=== PATIENT | female | born 1975 | race African-American/Black ===

== ENCOUNTER 2017-04-10 05:46 | Inpatient (IN) | payer OTHER ==
[~2017-04-10] VITALS: Ht 167.6 cm; Wt 57.9 kg
[2017-04-10 10:04] VITALS: BP 99/57; PULSE 80; RESP 18; TEMP 98.3; O2SAT 100
[2017-04-10] MEDS ORDERED: ALUMINUM/MAGNESIUM/SIMETH 30 ML CUP PO PRN (10:15)
[2017-04-10] MEDS ORDERED: MAGNESIUM HYDROXIDE SUSP 30 ML CUP PO PRN (10:15)
[2017-04-10] MEDS ORDERED: ACETAMINOPHEN 325 MG TAB PO PRN (10:15)
[2017-04-10] MEDS ORDERED: REMOVE OLD PATCH T-DERMAL PRN (10:15)
[2017-04-10] MEDS ORDERED: diphenhydrAMINE HCL 50 MG CAP PO PRN (10:15)
[2017-04-10] MEDS ORDERED: NICOTINE 21 MG/24 HR PATCH T-DERMAL PRN (10:15)
[2017-04-10] MEDS ORDERED: hydrOXYzine HCL 50 MG TAB PO PRN (12:15)
--- NOTE | 2017-04-10 12:15 | HHI.HP ---
Provisional Diagnosis Admission Date Apr 10, 2017 at 09:53 [place] I. 1. Schizoaffective disorder, bipolar type, acute exacerbation [place] II. Deferred Certification of Person's Competence To Provide Express and Informed Consent I have personally examined Jose Dooley , a person being served at [facility] on, Apr 10, 2017 12:15. Express and informed consent means consent voluntarily given in writing, by a competent person, after sufficient explanation and disclosure of the subject matter involved to enable the person to make a knowing and willful decision without any element of force, fraud, deceit, duress, or other form of constraint or coercion. This person is 18 years of age or older, is not now known to be incompetent to consent to treatment with a guardian advocate, and does not have a health care surrogate or proxy currently making medical treatment decisions. I have found this person to be one of the following: [X] Competent to provide express and informed consent, as defined above, for voluntary admission to this facility and is competent to provide express and informed consent for treatment. He/she has the consistent capacity to make well reasoned, willful, and knowing decisions concerning his or her medical or mental health treatment. The person fully and consistently understands the purpose of the admission for examination/placement and is fully capable of personally exercising all rights assured under [place] Incompetent to provide express and informed consent to voluntary admission, and this is incompetent to provide express and informed consent to treatment. The person must be transferred to involuntary status and a petition for a guardian advocate filed with the Circuit Court. [] Refusing to provide express and informed consent to voluntary admission but is competent to provide express and informed consent for treatment. The person must be discharged or transferred to involuntary status. Form shall be completed within 24 hours of a person's arrival at the receiving facility and filed in the clinical record of each person: 1. Admitted on a voluntary basis 2. Permitted to provide express and informed consent to his/her own treatment 3. Allowed to transfer from involuntary to voluntary status 4. Prior to permitting a person to consent to his or her own treatment after having been previously found incompetent to consent to treatment. History of Present Illness Capacity: Has Capacity Psych Chief Complaint: Psychosis, SI HPI Ms. Dooley is a 41-year-old female with a reported history of bipolar disorder who presents in transfer from [facility] under a Veloz act. Documentation from outside hospital reviewed. Case discussed with referring physician overnight. Patient presented there initially complaining of bilateral leg pain, workup for this was negative for any acute process per the ED provider. She became nonverbal in the ED and when she began speaking again, it was reportedly word salad. ED provider reported that he obtained head CT, which was unremarkable. Reviewing our electronic medical record, it appears this is patient's first visit to [facility]. Patient seen and examined with nurse. Chart reviewed. Case discussed with nursing staff. On my examination today, the patient reports that she used to be on Invega Sustenna until December 2016 when she stopped this medication because she thought she didn't need it anymore. Since that time she has been experiencing intermittent irritability and vague suicidal ideation. She contracts for safety in the hospital. She describes her mood presently as "settled" but does admit to feeling somewhat depressed with associated hopeless and worthless feelings. Sleep is fair. Appetite is good. Focus and concentration are reportedly intact. She denies audiovisual hallucinations but appears internally preoccupied. No hypomanic or manic symptoms. No delusional material elicited. Denies any homicidal ideation. When I ask about the patient 's mutism yesterday evening the patient replies "sometimes I get like that." Remainder of the psychiatric ROS is negative. No physical complaints. Past psychiatric history: The patient reports a history of bipolar disorder. She was previously on Invega Sustenna. She is not currently under the care of psychiatrist. She was last psychiatrically admitted several years ago. She reports one previous suicide attempt by overdose. Family history: The patient is unsure of her family psychiatric history. She knows of no history of suicide in the family. Chemical dependency history: The patient reports that she drinks occasional alcohol. She smokes a quarter of a pack of cigarettes daily. She denies any synthetic drug use. Social history: Patient has been residing in a hotel. She is single with 2 grown children. She is high school educated. She has no income. She denies any history. Denies any legal history. Denies any access to guns or firearms. She believes in God. She denies any history of trauma. Review of Systems ROS Limitations: Poor Historian Except as stated in HPI: all other systems reviewed are Neg Past Family Social History Coded Allergies: No Known Allergies (Unverified Allergy, Unknown, 04/10/17) Past Medical History Patient denies any past medical history. Current Medications Medications (Trade) Dose Ordered Sig/Erica Route Start Time Stop Time Status Last Admin (Benadryl) 50 mg HS PRN PO 04/10/17 10:15 (Tylenol) 650 mg Q4H PRN PO 04/10/17 10:15 (Milk Of Magnesia Liq) 30 ml DAILY PRN PO 04/10/17 10:15 (Mag-Al Plus Susp Liq) 30 ml Q6H PRN PO 04/10/17 10:15 (Habitrol 21 Mg Patch.24 Hr) 1 patch DAILY PRN T-DERMAL 04/10/17 10:15 Miscellaneous Information 1 DAILY PRN T-DERMAL 04/10/17 10:15 Patient's Strengths (min. 2) In a monitored setting. Verbally fluent. Physical Exam Physical examination was completed by ED provider at outside hospital. On my examination today, the patient appears to be in no acute physical distress. No motor abnormalities noted. Laboratories and vitals signs reviewed: Vital Signs Vital Signs Date Time Temp Pulse Resp B/P (MAP) Pulse Ox O2 Delivery O2 Flow Rate FiO2 04/10/17 10:04 98.3 80 18 99/57 (71) 100 Lab Results Laboratories reviewed: CBC unremarkable except for mildly elevated platelet count at 401. CMP unremarkable. Tylenol and salicylate level undetectable. Beta hCG negative. Alcohol level undetectable. Urine toxicology negative. Mental Status Examination Appearance: Disheveled Consciousness: Alert Orientation: x4 Motor Activity: Normal gait Speech: Unremarkable Language: Adequate Fund of Knowledge: Adequate Attention and Concentration: Easily Distracted Memory: Unremarkable Mood: Other (depressed) Affect: Blunt Thought Process & Associations: Intact Thought Content: Other (somewhat vague) Hallucination Type: Other (denies AVH but appears internally stimulated) Delusion Type: None Suicidal Ideation: Yes Suicidal Plan: No Suicidal Intention: No (contracts for safety on the inpatient unit) Homicidal Ideation: No Homicidal Plan: No Homicidal Intention: No Insight: Fair Judgment: Impulsive Assessment & Plan Problem List: (1) Schizoaffective disorder, bipolar type ICD Codes: F25.0 - Schizoaffective disorder, bipolar type Assessment & Plan 41-year-old female with psychiatric history as detailed above who presents in transfer from outside hospital under a Veloz act. On my examination today, the patient endorses ongoing low mood and vague suicidal ideation. She denies any psychotic symptoms presently but does appear somewhat internally preoccupied. She reports a history of bipolar disorder, but I suspect the diagnosis is more likely schizoaffective disorder, bipolar type looking at the totality of the case. She was previously on Invega Sustenna. We discussed patient's pharmacotherapeutic options for management of her condition and settle on resuming oral paliperidone with subsequent transition to Invega Sustenna so long as this agent remains efficacious for the patient. Patient requires psychiatric hospitalization at this time for safety, observation and stabilization. Admit inpatient. Voluntary status. Invega 6 mg at bedtime for management of mood and psychotic symptoms. Atarax as needed for anxiety, Benadryl as needed for sleep. R/B/A for medications discussed with patient. Check TSH. Check lipid panel and hemoglobin A1c in the morning. Check EKG for QTC. Vitals every shift. Counselor to see. Disposition planning. Estimated length of stay : 5-7 days. Discharge Planning Pending psychiatric stabilization Request HC Surrog/Guard Advoc?: No Parrish Albert MD Apr 10, 2017 12:15
[2017-04-10 18:06] VITALS: BP 122/70; PULSE 91; RESP 18; TEMP 97.5; O2SAT 100
[2017-04-10] MEDS: PALIPERIDONE ER 6 MG TAB PO SCH (21:08)
[2017-04-11 06:14] VITALS: BP 109/74; PULSE 106; RESP 16; TEMP 97.5; O2SAT 98
--- NOTE | 2017-04-11 08:53 | EKG ---
Date Performed: 04/10/2017 Time Performed: 13:38:56 PTAGE: 41 years EKG: Sinus rhythm SEPTAL MYOCARDIAL INFARCTION , PROBABLY OLD ABNORMAL ECG NO PREVIOUS TRACING DOCTOR: Marya Jurado Interpretating Date/Time 04/11/2017 08:51:40
[2017-04-11 10:36] LABS: CHOLESTEROL 127 MG/DL (120-200)
[2017-04-11 10:45] LABS: CHOLESTEROL/ HDL RATIO 1.94 RATIO; HDL CHOLESTEROL 65.3 MG/DL (40.0-60.0); LDL CHOLESTEROL 54 MG/DL (0-99); TRIGLYCERIDES 39 MG/DL (42-150)
[2017-04-11 14:59] LABS: HEMOGLOBIN A1C 5.2 % (4.3-6.0)
--- NOTE | 2017-04-11 15:38 | HHI.PYPN ---
Subjective Chief Complaint: Psychosis, SI Remarks Electronic medical record and labs reviewed, and discussed case with staff. Follow-up performed in patient's room with nurse present. Patient found lying in her bed. She is awake and alert. Patient reports that her right arm hurts and it is hard for her to lift it. Her nurse advises just prior to the follow- up exam patient had been out in the jean knocking on the window to the nursing station and was seen using the arm without difficulty. Patient reports that she slept well last night and has a good appetite. She advises that she moved here from [place] "less than a month ago" and states that she is unemployed. She expresses her concern of being homeless and asks multiple times if "you will will find me a place to live". Mental Status Examination Appearance: Disheveled Consciousness: Alert Orientation: x4 Motor Activity: Normal gait Speech: Unremarkable Language: Adequate Fund of Knowledge: Adequate Attention and Concentration: Easily Distracted Memory: Unremarkable Mood: Other (depressed) Affect: Blunt Thought Process & Associations: Intact Thought Content: Other (somewhat vague) Hallucination Type: Other (denies AVH but appears internally stimulated) Delusion Type: None Suicidal Ideation: No Suicidal Plan: No Suicidal Intention: No (contracts for safety on the inpatient unit) Homicidal Ideation: No Homicidal Plan: No Homicidal Intention: No Insight: Fair Judgment: Impulsive Results Labs Test 04/11/17 09:25 Triglycerides Level 39 MG/DL Cholesterol Level 127 MG/DL LDL Cholesterol 54 MG/DL HDL Cholesterol 65.3 MG/DL Cholesterol/HDL Ratio 1.94 RATIO Thyroid Stimulating Hormone 3rd Gen 0.597 uIU/ML Vitals/IOs Vital Signs Date Time Temp Pulse Resp B/P (MAP) Pulse Ox O2 Delivery O2 Flow Rate FiO2 04/11/17 06:14 97.5 106 16 109/74 (86) 98 Assessment & Plan Problem List: (1) Schizoaffective disorder, bipolar type ICD Codes: F25.0 - Schizoaffective disorder, bipolar type Assessment & Plan Estimated LOS: Continue with treatment plan until patient psychiatrically stabilized. Work on discharge plan. Justification for Cont. Inpt. Meeting this patient to a lower level of care likely result in decompensation at this time. Request HC Surrog/Guard Advoc?: No Kadie Aguila Apr 11, 2017 15:38
[2017-04-11] MEDS: PALIPERIDONE ER 6 MG TAB PO SCH (21:10)
[2017-04-12 05:48] VITALS: BP 106/65; PULSE 81; RESP 17; TEMP 97.6; O2SAT 98
--- NOTE | 2017-04-12 13:14 | HHI.PYPN ---
Subjective Chief Complaint: Psychosis, SI Remarks Patient was seen and case discussed with nursing. Patient is blunted and withdrawn during the interview. Mood is "depressed." Psychomotor retardation. She does denies suicidal or homicidal ideation intent or plan. Insight is poor concerning her admission. She is compliant with her medications and tolerating them well Mental Status Examination Appearance: Disheveled Consciousness: Alert Orientation: x4 Motor Activity: Normal gait Speech: Unremarkable Language: Adequate Fund of Knowledge: Adequate Attention and Concentration: Easily Distracted Memory: Unremarkable Mood: Other (depressed) Affect: Blunt Thought Process & Associations: Intact Thought Content: Other (somewhat vague) Hallucination Type: Other (denies AVH but appears internally stimulated) Delusion Type: None Suicidal Ideation: No Suicidal Plan: No Suicidal Intention: No (contracts for safety on the inpatient unit) Homicidal Ideation: No Homicidal Plan: No Homicidal Intention: No Insight: Fair Judgment: Impulsive Results Vitals/IOs Vital Signs Date Time Temp Pulse Resp B/P (MAP) Pulse Ox O2 Delivery O2 Flow Rate FiO2 04/12/17 05:48 97.6 81 17 106/65 (79) 98 Assessment & Plan Problem List: (1) Schizoaffective disorder, bipolar type ICD Codes: F25.0 - Schizoaffective disorder, bipolar type Assessment & Plan Continue current treatment plan Justification for Cont. Inpt. Patient would decompensate in a less restrictive setting Request HC Surrog/Guard Advoc?: Marlon Stephens DO Apr 12, 2017 13:14
--- NOTE | 2017-04-12 16:17 | PD.CONS ---
HPI Service [facility] Hospitalists Consult Requested By Psychiatric service Reason for Consult Medical management, right shoulder pain Primary Care Physician No Primary Care Physician Diagnoses: History of Present Illness This is a 40-year-old female with past medical history significant for bipolar disorder who was admitted to [facility] inpatient psychiatric unit as a transfer from [facility] [place] under Veloz act. Patient has developed complaints of right shoulder pain and hospitalist services have been consulted for evaluation. Patient seen and examined. Patient appears somewhat guarded. She will give only minimal answers to questions. She refuses examination today. States that she's developed right shoulder pain several days ago. She denies any history of injury. She does endorse some limited range of motion. She denies any associated fever or chills. She declines to elaborate any further in her complaints. Review of Systems Except as stated in HPI: all other systems reviewed are Neg Past Family Social History Allergies: Coded Allergies: No Known Allergies (Unverified Allergy, Unknown, 04/10/17) Past Medical History Bipolar disorder Past Surgical History Patient denies any previous surgical history Reported Medications Invega Er 6mg po HS Atarax 50mg q6h prn anxiety Active Ordered Medications Current Medications Medications (Trade) Dose Ordered Sig/Erica Route Start Time Stop Time Status Last Admin (Benadryl) 50 mg HS PRN PO 04/10/17 10:15 (Tylenol) 650 mg Q4H PRN PO 04/10/17 10:15 04/11/17 15:51 (Milk Of Magnesia Liq) 30 ml DAILY PRN PO 04/10/17 10:15 (Mag-Al Plus Susp Liq) 30 ml Q6H PRN PO 04/10/17 10:15 (Habitrol 21 Mg Patch.24 Hr) 1 patch DAILY PRN T-DERMAL 04/10/17 10:15 Miscellaneous Information 1 DAILY PRN T-DERMAL 04/10/17 10:15 (Atarax) 50 mg Q6H PRN PO 04/10/17 12:15 (Invega Er) 6 mg HS PO 04/10/17 21:00 04/11/17 21:10 Family History Patient states she does not know her family medical history Social History Patient has a history of tobacco use of 1/4 pack of cigarettes daily. She reports occasional consumption of EtOH. She denies any illicit drug use. Physical Exam Vital Signs Vital Signs Date Time Temp Pulse Resp B/P (MAP) Pulse Ox O2 Delivery O2 Flow Rate FiO2 04/12/17 05:48 97.6 81 17 106/65 (79) 98 Physical Exam GENERAL: This is a well-nourished, well-developed female patient, in no apparent distress. Awake and alert. She refuses examination at this time. She appears comfortable. HEAD: Atraumatic. Normocephalic. EYES: No scleral icterus. No injection or drainage. ENT: Nose without bleeding or purulent drainage. Airway patent. NECK: Trachea midline. CARDIOVASCULAR: Refused exam RESPIRATORY: Refused exam GASTROINTESTINAL: Refused exam MUSCULOSKELETAL: Refused exam NEUROLOGICAL: Awake and alert. Motor appears grossly intact patient witnessed ambulating in the hallway without any difficulty. Normal speech. PSYCHIATRIC: Guarded. Minimal verbalization. Assessment and Plan Assessment and Plan 40-year-old female with past medical history significant for bipolar disorder who was admitted to [facility] inpatient psychiatric unit as a transfer from [facility] [place] under Veloz act. Patient has developed complaints of right shoulder pain and hospitalist services have been consulted for evaluation. Bipolar disorder -Management per psychiatric team Right shoulder pain -patient refusing examination. Discussed with LUIS Chang. -X-ray right shoulder for further evaluation -trial of scheduled NSAIDS DVT prophylaxis -patient is ambulatory Thank you very kindly for this consultation. Will continue to follow along with you. Discussed Condition With Patient, Loar Langston RN Apr 12, 2017 16:17
[2017-04-12 18:18] VITALS: BP 126/71; PULSE 79; RESP 18; TEMP 97.9; O2SAT 99
[2017-04-12] MEDS: PALIPERIDONE ER 6 MG TAB PO SCH (21:51)
[2017-04-12] MEDS: FAMOTIDINE 20 MG TAB PO SCH (21:51)
[2017-04-12] MEDS: NAPROXEN 375 MG TAB PO SCH (21:53)
[2017-04-13 04:53] VITALS: BP 114/68; PULSE 70; RESP 16; TEMP 97.6; O2SAT 98
[2017-04-13] MEDS: NAPROXEN 375 MG TAB PO SCH ×3 (09:00→21:15)
[2017-04-13] MEDS: FAMOTIDINE 20 MG TAB PO SCH ×3 (09:00→21:15)
--- NOTE | 2017-04-13 11:22 | HHI.PYPN ---
Subjective Chief Complaint: Psychosis, SI Remarks Patient was seen and case discussed with nursing. Patient says she is "working on her sanity." She could not explain to me what she means. She remains paranoid with drinks and food and feels uncomfortable when others prepare them without her being able to see. She refused and exam from the medical doctor earlier today. Denies auditory visual hallucinations. Largely seclusive to room. Treating throughout the day Mental Status Examination Appearance: Disheveled Consciousness: Alert Orientation: x4 Motor Activity: Normal gait Speech: Unremarkable Language: Adequate Fund of Knowledge: Adequate Attention and Concentration: Easily Distracted Memory: Unremarkable Mood: Other (depressed) Affect: Blunt Thought Process & Associations: Intact Thought Content: Other (somewhat vague) Hallucination Type: Other (denies AVH but appears internally stimulated) Delusion Type: None Suicidal Ideation: No Suicidal Plan: No Suicidal Intention: No (contracts for safety on the inpatient unit) Homicidal Ideation: No Homicidal Plan: No Homicidal Intention: No Insight: Fair Judgment: Impulsive Results Vitals/IOs Vital Signs Date Time Temp Pulse Resp B/P (MAP) Pulse Ox O2 Delivery O2 Flow Rate FiO2 04/13/17 04:53 97.6 70 16 114/68 (83) 98 Assessment & Plan Problem List: (1) Schizoaffective disorder, bipolar type ICD Codes: F25.0 - Schizoaffective disorder, bipolar type Assessment & Plan Continue current treatment plan Justification for Cont. Inpt. Patient will decompensate in a less restrictive setting Request HC Surrog/Guard Advoc?: No Marlon Vang DO Apr 13, 2017 11:22
[2017-04-13] MEDS: PALIPERIDONE ER 6 MG TAB PO SCH (21:15)
[2017-04-14 05:31] VITALS: BP 102/59; PULSE 70; RESP 16; TEMP 98.3; O2SAT 97
[2017-04-14] MEDS: NAPROXEN 375 MG TAB PO SCH (09:00)
[2017-04-14] MEDS: FAMOTIDINE 20 MG TAB PO SCH ×2 (09:00→21:00)
--- NOTE | 2017-04-14 13:19 | HHI.PYPN ---
Subjective Chief Complaint: Psychosis, SI Remarks Patient seen and examined with nurse. Chart reviewed. Case discussed with nursing staff who reports that the patient is compliant with her paliperidone but refused an x-ray order to evaluate arm pain. No behavioral issues noted. Case discussed with counselor. On my examination today, the patient reports that her mood is "so-so." She is somewhat tearful at times, particularly when discussing difficulties with housing. She comes from [place] but says that she will not and cannot return there. She denies any suicidal or homicidal ideation. Denies any audiovisual hallucinations. I can elicit no delusional material. She does report a history of alcohol use issues in the past and is receptive to the idea of sober living. Denies side effects from medications. She declines long-acting injectable antipsychotic today. No acute physical complaints. Patient continues to refuse the x-ray when I suggest it to her. Review of Systems Except as stated in HPI: all other systems reviewed are Neg Mental Status Examination Appearance: Appropriate Consciousness: Alert Orientation: x4 Motor Activity: Normal gait, Other (no motor abnormalities noted) Speech: Unremarkable Language: Adequate Fund of Knowledge: Adequate Attention and Concentration: Easily Distracted Memory: Unremarkable Mood: Other (depressed) Affect: Appropriate Thought Process & Associations: Intact, Logical, Linear Thought Content: Appropriate Hallucination Type: None Delusion Type: None Suicidal Ideation: No Suicidal Plan: No Suicidal Intention: No Homicidal Ideation: No Homicidal Plan: No Homicidal Intention: No Mental Status Exam Remarks Insight and judgment are fair Results Labs Labs reviewed. No new labs. Vitals/IOs Vital Signs Date Time Temp Pulse Resp B/P (MAP) Pulse Ox O2 Delivery O2 Flow Rate FiO2 04/14/17 05:31 98.3 70 16 102/59 (73) 97 Assessment & Plan Problem List: (1) Schizoaffective disorder, bipolar type ICD Codes: F25.0 - Schizoaffective disorder, bipolar type Assessment & Plan Continue oral paliperidone as ordered. Patient is declining long-acting injectable antipsychotic. Continue to monitor on the inpatient unit. Continue other medications and care as ordered. Justification for Cont. Inpt. Risk for decompensation Discharge Planning Pending further discharge planning. Case discussed with counselor. Request HC Surrog/Guard Advoc?: No Parrish Albert MD Apr 14, 2017 13:19
[2017-04-14 17:43] VITALS: BP 106/68; PULSE 73; RESP 16; TEMP 98.1; O2SAT 98
[2017-04-14] MEDS: PALIPERIDONE ER 6 MG TAB PO SCH (20:47)
[2017-04-15 06:00] VITALS: BP 115/63; PULSE 70; RESP 18; TEMP 98.1
[2017-04-15] MEDS: FAMOTIDINE 20 MG TAB PO SCH (08:22)
--- NOTE | 2017-04-15 08:57 | HHI.PYPN ---
Subjective Chief Complaint: Psychosis, SI Remarks Patient seen and examined with nurse. Chart reviewed. Case discussed with nursing staff. No behavioral issues overnight. Case discussed in treatment team. On my examination today, the patient reports that she is doing well. She denies any SI or HI. Denies any AVH. With considerable mobilization of affect, the patient describes her desire to remain sober from alcohol and to work. Counselor to assist the patient in trying to obtain sober living placement. Denies side effects from medications. I have once again suggested long-acting injectable antipsychotic, and the patient continues to decline this. No physical complaints. Review of Systems Except as stated in HPI: all other systems reviewed are Neg Mental Status Examination Appearance: Appropriate Consciousness: Alert Orientation: x4 Motor Activity: Other (no abnormal motor movements noted) Speech: Unremarkable Language: Adequate Fund of Knowledge: Adequate Attention and Concentration: Easily Distracted Memory: Unremarkable Mood: Appropriate Affect: Appropriate Thought Process & Associations: Intact, Logical, Linear Thought Content: Appropriate Hallucination Type: None Delusion Type: None Suicidal Ideation: No Suicidal Plan: No Suicidal Intention: No Homicidal Ideation: No Homicidal Plan: No Homicidal Intention: No Insight: Adequate Judgment: Adequate Results Labs Labs reviewed. No new labs. Vitals/IOs Vital Signs Date Time Temp Pulse Resp B/P (MAP) Pulse Ox O2 Delivery O2 Flow Rate FiO2 04/15/17 06:00 98.1 70 18 115/63 (80) 04/14/17 17:43 98 Assessment & Plan Problem List: (1) Schizoaffective disorder, bipolar type ICD Codes: F25.0 - Schizoaffective disorder, bipolar type Assessment & Plan Continue oral paliperidone as ordered. Patient is declining long-acting injectable. Continue to monitor on the inpatient unit. Continue other medications and care as ordered. Justification for Cont. Inpt. Risk for decompensation in less restrictive environment. Discharge Planning Counselor to work on discharge plan. Case discussed with counselor. Request HC Surrog/Guard Advoc?: No Parrish Albert MD Apr 15, 2017 08:57
[2017-04-15] MEDS ORDERED: INVE6TAB3 PO (12:31)
--- NOTE | 2017-04-15 12:32 | HHI.DS ---
Psychiatry Discharge Summary Inpatient Psychiatric care?: Yes Advance Directive: No Reason Not Provided: Due to Patient Condition Mental Health AdvanceDirective: No Health Care Proxy: No Admission Admission Date Apr 10, 2017 at 09:53 Admission Diagnosis: (1) Schizoaffective disorder, bipolar type ICD Code: F25.0 - Schizoaffective disorder, bipolar type Brief History Ms. Dooley is a 41-year-old female with a reported history of bipolar disorder who presents in transfer from [facility] under a [facility] act. Documentation from outside hospital reviewed. Case discussed with referring physician overnight. Patient presented there initially complaining of bilateral leg pain, workup for this was negative for any acute process per the ED provider. She became nonverbal in the ED and when she began speaking again, it was reportedly word salad. ED provider reported that he obtained head CT, which was unremarkable. Reviewing our electronic medical record, it appears this is patient's first visit to [place]. Patient seen and examined with nurse. Chart reviewed. Case discussed with nursing staff. On my examination today, the patient reports that she used to be on Invega Sustenna until December 2016 when she stopped this medication because she thought she didn't need it anymore. Since that time she has been experiencing intermittent irritability and vague suicidal ideation. She contracts for safety in the hospital. She describes her mood presently as "settled" but does admit to feeling somewhat depressed with associated hopeless and worthless feelings. Sleep is fair. Appetite is good. Focus and concentration are reportedly intact. She denies audiovisual hallucinations but appears internally preoccupied. No hypomanic or manic symptoms. No delusional material elicited. Denies any homicidal ideation. When I ask about the patient 's mutism yesterday evening the patient replies "sometimes I get like that." Remainder of the psychiatric ROS is negative. No physical complaints. Past psychiatric history: The patient reports a history of bipolar disorder. She was previously on Invega Sustenna. She is not currently under the care of psychiatrist. She was last psychiatrically admitted several years ago. She reports one previous suicide attempt by overdose. Family history: The patient is unsure of her family psychiatric history. She knows of no history of suicide in the family. Chemical dependency history: The patient reports that she drinks occasional alcohol. She smokes a quarter of a pack of cigarettes daily. She denies any synthetic drug use. Social history: Patient has been residing in a hotel. She is single with 2 grown children. She is high school educated. She has no income. She denies any history. Denies any legal history. Denies any access to guns or firearms. She believes in God. She denies any history of trauma. Tobacco Use In Past 30 Days: No Tobacco Past 30 Days Alcohol Use: Never Hospital Course Patient was admitted to a locked, inpatient psychiatric unit. A general medical consultation was obtained. Appropriate precautions were in place throughout patient's hospital stay. Patient was seen and examined daily on the unit by psychiatry and also visited by counselor. Psychotropic medications were adjusted. Patient was started on oral paliperidone. She declined long- acting injectable Invega Sustenna. Patient had improvement in presenting psychiatric symptomatology during the course of her hospital stay. There has been no evidence of any suicidality or homicidality on the inpatient unit. The patient has remained in good behavioral control and was transitioned uneventfully from the higher acuity unit to the lower acuity unit. With the assistance of the counselor, the patient has arranged for placement in a sober living facility in [place], and I have been notified that there is a bed available for the patient today, and the patient would like to go to sober living today. For examination on day of discharge, see my progress note dated today. There is no evidence of mood instability on exam today. There is no evidence of any psychosis or impairment in reality construction. The patient is denying suicidal or homicidal ideation and contracts for safety. Suicide and violence risk assessment on day of discharge both suggest lower imminent risk, and the patient's level of function is adequate for outpatient care. Patient has maximized benefit from this inpatient psychiatric hospital stay and will be discharged today to sober living with psychiatric follow-up as arranged by counselor. Patient is also to follow-up with primary care. Patient to abstain from substances of abuse. Chemical dependency follow-up through sober living. Patient to return to psychiatric emergency room for any concerning psychiatric symptoms as part of a general safety plan. Results Blood Pressure 115 / 63 Vital Signs Date Time Temp Pulse Resp B/P (MAP) Pulse Ox O2 Delivery O2 Flow Rate FiO2 04/15/17 06:00 98.1 70 18 115/63 (80) 04/14/17 17:43 98 Laboratory Results Test 04/11/17 09:25 Cholesterol Level 127 MG/DL (120-200) HDL Cholesterol 65.3 MG/DL (40.0-60.0) Hemoglobin A1c 5.2 % (4.3-6.0) LDL Cholesterol 54 MG/DL (0-99) Triglycerides Level 39 MG/DL (42-150) Summary of Procedures None done Imaging Refused x-ray of shoulder. Pending results at discharge: No Medications # of Antipsychotic meds at D/C: 1 Approp Antipsych med options 1 - Minimum of three failed multiple trials of monotherapy. 2 - Documented plan to taper to monotherapy due to previous use of multiple meds OR cross-taper in progress at D/C. 3 - Documentation of augmentation of Clozapine. 4 - Justification other than those listed in allowable values 1-3, document here : Discharge Discharge Date: Apr 15, 2017 Discharge Diagnosis: (1) Schizoaffective disorder, bipolar type Diagnosis: Principal (stabilized) ICD Code: F25.0 - Schizoaffective disorder, bipolar type (2) History of alcohol use disorder Diagnosis: Secondary ICD Code: Z87.898 - Personal history of other specified conditions Pt Condition on Discharge: Stable Discharge Disposition: Discharge Home Discharge Instructions Diet Instructions: As Tolerated, No Restrictions Activities you can perform: Weight Bearing as [place] Scheduled Appointment: as per counselor's notes New Medications: Paliperidone ER (Invega) 6 Mg Tab 6 MG PO HS for Mental Health for 15 Days, TAB 1 Refill Discharge Time > 30 minutes Mental Status Examination Appearance: Appropriate Consciousness: Alert Orientation: x4 Motor Activity: Other (no abnormal motor movements noted) Speech: Unremarkable Language: Adequate Fund of Knowledge: Adequate Attention and Concentration: Adequate Memory: Unremarkable Mood: Appropriate Affect: Appropriate Thought Process & Associations: Intact, Logical, Linear Thought Content: Appropriate Hallucination Type: None Delusion Type: None Suicidal Ideation: No Suicidal Plan: No Suicidal Intention: No Homicidal Ideation: No Homicidal Plan: No Homicidal Intention: No Insight: Adequate Judgment: Adequate Discharge/Advance Care Plan Health Problems: (1) Schizoaffective disorder, bipolar type Goals to promote your health * To prevent worsening of your condition and complications * To maintain your health at the optimal level Directions to meet your goals Take your medications as prescribed Follow your dietary instruction Follow activity as directed Keep your appointments as scheduled Take your immunizations and boosters as scheduled If your symptoms worsen call your PCP, if no PCP go to Urgent Care Center or Emergency Room For 02/09 questions related to your inpatient stay or results of tests pending at discharge, please contact Dr. Parrish Albert at Smoking is Dangerous to Your Health. Avoid second hand smoking Parrish Albert MD Apr 15, 2017 12:32
== END 2017-04-15 17:00 | disposition home or self-care (01) | DRG 885 ==
LOC: H270 09:53 → H260 04-11 09:50
PROVIDERS: ADMIT Psychiatry & Neurology Psychiatry; ATTEND Psychiatry & Neurology Psychiatry
DX: F25.0 Schizoaffective disorder, bipolar type (principal); Z91.14 Patient's other noncompliance with medication regimen; F17.210 Nicotine dependence, cigarettes, uncomplicated; Z59.0 Homelessness; M25.511 Pain in right shoulder
CPT/HCPCS: 80061; 83036; 84443; 93005